=== PATIENT | female | born 1980 | race Native Hawaiian/Other Pacific Islander ===

== ENCOUNTER 2018-08-15 19:46 | Emergency (ER) | payer SELFPAY ==
[2018-08-15 20:24] VITALS: BP 143/85; PULSE 80; RESP 16; TEMP 97.8; O2SAT 98
[2018-08-15] MEDS ORDERED: Dexamethasone 4 mg/1 ml IM STA (20:38)
--- NOTE | 2018-08-15 20:42 | C.PDOC ---
History Of Present Illness 38 y/o female presents to the ED complaining of right knee pain for 5 days, worsening today. Two days ago she developed swelling to the right leg, and states ambulating became more painful. Pain is now radiating up to the buttocks and down to the toes. Patient notes it worsens when changing position from sitting to standing. No trauma or fall. No recent heavy lifting. She tried taking Advil today without relief. Time Seen by Provider: 08/15/18 20:04 Chief Complaint (Nursing): Lower Extremity Problem/Injury History Per: Patient History/Exam Limitations: no limitations Onset/Duration Of Symptoms: Days (x5) Current Symptoms Are (Timing): Still Present Past Medical History Reviewed: Historical Data, Nursing Documentation, Vital Signs Vital Signs: Last Vital Signs Temp 97.8 F 08/15/18 20:18 Pulse 80 08/15/18 20:18 Resp 16 08/15/18 20:18 BP 143/85 08/15/18 20:18 Pulse Ox 98 08/15/18 21:46 Family History: States: Unknown Family Hx - Social History Hx Alcohol Use: No Hx Substance Use: No - Immunization History Hx Tetanus Toxoid Vaccination: No Hx Influenza Vaccination: No Hx Pneumococcal Vaccination: No Review Of Systems Except As Marked, All Systems Reviewed And Found Negative. Musculoskeletal: Positive for: Leg Pain (right leg pain and swelling, pain radiates up to buttock and down to toes). Negative for: Back Pain Neurological: Negative for: Weakness, Numbness, Incoordination Physical Exam - Physical Exam Appears: Non-toxic, No Acute Distress Skin: Warm, Dry Head: Atraumatic, Normacephalic Eye(s): bilateral: Normal Inspection Nose: Normal Oral Mucosa: Moist Neck: Normal ROM, No Midline Cervical Tenderness, Supple Back: Normal Inspection, No Vertebral Tenderness, No Paraspinal Tenderness Extremity: Normal ROM ( with full flexion and extension of the knee), Tenderness (mild tenderness over right knee), Capillary Refill (less than 2 sec) , No Deformity, Swelling (mild swelling to right knee) Pulses: Left Dorsalis Pedis: Normal, Right Dorsalis Pedis: Normal Neurological/Psych: Oriented x3, Normal Speech, Normal Motor, Normal Sensation ED Course And Treatment O2 Sat by Pulse Oximetry: 98 Medical Decision Making Medical Decision Making: Plan: X-ray right knee Decadron 10 mg IM Toradol 30 mg IM Xrays are negative for fracture or dislocations. On re-exam, the patient reports improvement of symptoms. Lungs are CTA, heart is RRR, Abdomen is soft, non-tender and the patient is tolerating PO well. Pt is ambulatory in the ED with steady gait. Follow up with the medical doctor within 1-2 days. return if worsened. Disposition - Disposition Referrals: [facility] [Outside] Disposition: HOME/ ROUTINE Disposition Time: 21:44 Condition: GOOD Additional Instructions: Follow up with the medical doctor within 1-2 days. return if worsened. Prescriptions: Naproxen [Naprosyn] 500 mg PO BID #20 tab Instructions: Osteoarthritis Forms: [employer] (Indian) - POA Present On Arrival: None - Clinical Impression Clinical Impression: Joint pain - PA / [employer] / Resident Statement MD/DO has reviewed & agrees with the documentation as recorded. - Scribe Statement The provider has reviewed the documentation as recorded by the Scribe (Felicia Banuelos) All medical record entries made by the Scribe were at my direction and personally dictated by me. I have reviewed the chart and agree that the record accurately reflects my personal performance of the history, physical exam, medical decision making, and the department course for this patient. I have also personally directed, reviewed, and agree with the discharge instructions and disposition.
--- NOTE | 2018-08-16 08:34 | RAD ---
Date of service: 08/15/2018 PROCEDURE: Right Knee Radiographs. HISTORY: knee pain, swelling COMPARISON: None. FINDINGS: BONES: No acute fracture. JOINTS: Unremarkable. JOINT EFFUSION: Moderate suprapatellar fusion. OTHER FINDINGS: None. IMPRESSION: Moderate suprapatellar joint effusion without demonstrated fracture or dislocation.
== END 2018-08-15 21:56 | disposition home or self-care (01) ==
LOC: C.ER 19:46
DX: M25.561 Pain in right knee (principal)
CPT/HCPCS: 73562; 96372; 99283; J1100; J1885